=== PATIENT | male | born 1960 | race Caucasian/White ===

== ENCOUNTER 2020-09-27 15:13 | Emergency (ER) | payer OTHER ==
[2020-09-27 15:47] LABS: BASOPHIL 0.1 % (0-2); EOSINOPHIL 0 % (0-5); HCT 36.9 % (42.0-52.0); HGB 13.1 g/dl (13.2-18.0); LYMPHOCYTE 6.7 % (15-48); MCH 32.3 pg (25.0-31.0); MCHC 35.5 g/dL (32.0-36.0); MCV 91.1 fL (78.0-100.0); MONOCYTE 6.7 % (0-12); MPV 12.7 fL (6.0-9.5); NEUTROPHIL 85.8 % (41-80); NRBC 0; RBC 4.05 M/uL (4.70-6.00); RDW 13.2 % (11.5-14.0); WBC 14.1 K/uL (4.0-10.5)
[2020-09-27 15:58] LABS: ALBUMIN 2.2 g/dL (3.4-5.0); BILIRUBIN - TOTAL 1.2 mg/dL (0.2-1.0); BUN/CREAT RATIO (CALC) 9.4 RATIO; CREATININE 0.53 mg/dL (0.67-1.17); GLOBULIN (CALCULATION) 5.8 g/dL; POTASSIUM 3.3 mmol/L (3.5-5.1)
[2020-09-27 16:02] LABS: LACTIC ACID 5.5 mmol/L (0.4-1.9)
[2020-09-27 16:04] LABS: PLT 53 K/uL (150-400)
[2020-09-27 17:14] LABS: BILIRUBIN 2+ mg/dL (NEGATIVE); BLOOD TRACE-INTACT Ery/uL (NEGATIVE); CLARITY CLEAR (CLEAR); COLOR YELLOW (YELLOW); GLUCOSE (U) NORMAL (NORMAL); LEUKOCYTES NEGATIVE Leu/uL (NEGATIVE); NITRITE NEGATIVE (NEGATIVE); PROTEIN 1+ mg/dL (NEGATIVE); SPECIFIC GRAVITY 1.015 (1.001-1.030)
[2020-09-27 17:15] LABS: BARBITURATES NEGATIVE (NEGATIVE); ECSTASY (MDMA) NEGATIVE (NEGATIVE); MARIJUANA (THC) NEGATIVE (NEGATIVE); METHADONE NEGATIVE (NEGATIVE); OPIATES NEGATIVE (NEGATIVE)
[2020-09-27 17:16] LABS: AMPHETAMINES NEGATIVE (NEGATIVE); OXYCODONE NEGATIVE (NEGATIVE)
[2020-09-27 17:33] LABS: AMORPHOUS URATES CRYSTALS MODERATE; BACTERIA TRACE; MUCOUS TRACE; SQUAMOUS EPITHELIAL CELLS RARE; URINARY RBC RARE
[2020-09-27 18:56] LABS: INFLUENZA A NAA NEGATIVE (NEGATIVE)
[2020-09-27 18:59] LABS: CORONAVIRUS 2019 SARS-COV-2 POSITIVE (NEGATIVE)
== END 2020-09-27 22:00 | disposition other institution (70) ==
LOC: FER 15:13
PROVIDERS: Emergency Medicine
DX: R56.9 Unspecified convulsions (principal); I62.03 Nontraumatic chronic subdural hemorrhage; K85.90 Acute pancreatitis without necrosis or infection, unspecified; U07.1 COVID-19; F17.210 Nicotine dependence, cigarettes, uncomplicated
CPT/HCPCS: 36415; 36600; 70450; 71045; 80053; 80305; 81001; 82150; 82803; 83605; 83690; 84145; 84484; 85025; 87040; 93005; G0480; J0696; J1953; J2060; J3370; J3411; J3475; J7030; J7050; Q9967; U0002

== ENCOUNTER 2021-12-10 20:11 | Inpatient (IN) | payer OTHER ==
[~2021-12-10] VITALS: Ht 172.7 cm; Wt 71.0 kg
[~2021-12-10 20:11] MED LIST: KEPPRA XR500 MG PO; PERCOCET 5-3251 EACH PO
[2021-12-10 21:52] LABS: BASOPHIL 0.3 % (0-2); EOSINOPHIL 0 % (0-5); HCT 35.4 % (42.0-52.0); HGB 12.1 g/dl (13.2-18.0); LYMPHOCYTE 6.1 % (15-48); MCH 31.5 pg (25.0-31.0); MCHC 34.2 g/dL (32.0-36.0); MCV 92.2 fL (78.0-100.0); MONOCYTE 13.2 % (0-12); MPV 9.6 fL (6.0-9.5); NRBC 0; PLT 374 K/uL (150-400); RBC 3.84 M/uL (4.70-6.00); RDW 12.9 % (11.5-14.0)
[2021-12-10 22:27] LABS: CORONAVIRUS 2019 SARS-COV-2 NEGATIVE (NEGATIVE); INFLUENZA A NAA NEGATIVE (NEGATIVE)
[2021-12-10 22:42] LABS: ALKALINE PHOSHATASE 111 U/L (46-116); ALT 14 U/L (16-63); AST 22 U/L (15-37); BILIRUBIN - TOTAL 0.4 mg/dL (0.2-1.0); BUN 8 mg/dL (7-18); CHLORIDE 85 mmol/L (98-107); CO2 (BICARBONATE) 30 mmol/L (21-32); CREATININE 0.73 mg/dL (0.67-1.17); GLOBULIN (CALCULATION) 5.7 g/dL; GLUCOSE 117 mg/dL (74-106); TOTAL PROTEIN 7.7 g/dL (6.4-8.2)
[2021-12-11 01:03] LABS: BILIRUBIN NEGATIVE (NEGATIVE); BLOOD NEGATIVE Ery/uL (NEGATIVE); CLARITY CLEAR (CLEAR); COLOR YELLOW (YELLOW); GLUCOSE (U) NORMAL (NORMAL); LEUKOCYTES NEGATIVE Leu/uL (NEGATIVE); NITRITE NEGATIVE (NEGATIVE); PROTEIN NEGATIVE (NEGATIVE); UROBILINOGEN 0.2 mg/dL (0.2-1.0)
[2021-12-11 05:36] LABS: BASOPHIL 0.2 % (0-2); EOSINOPHIL 0 % (0-5); HGB 10.9 g/dl (13.2-18.0); LYMPHOCYTE 4.7 % (15-48); MCH 31.9 pg (25.0-31.0); MCHC 34.1 g/dL (32.0-36.0); MCV 93.6 fL (78.0-100.0); MONOCYTE 10.5 % (0-12); MPV 9.5 fL (6.0-9.5); NEUTROPHIL 81.8 % (41-80); NRBC 0; PLT 344 K/uL (150-400); RBC 3.42 M/uL (4.70-6.00); RDW 13.1 % (11.5-14.0); RETICULOCYTE COUNT 0.9 % (1.0-2.0)
[2021-12-11 05:46] LABS: INR 1.51 (0.9-1.2); PROTHROMBIN TIME 17.5 SECONDS (11.8-13.4)
[2021-12-11 05:47] LABS: PTT 39.4 SECONDS (24.4-34.7)
[2021-12-11 05:59] LABS: WBC 32.7 K/uL (4.0-10.5)
[2021-12-11 06:22] LABS: TOTAL CELL COUNT 100
[2021-12-11 06:25] LABS: BLAST 1; LYMPHOCYTE(M) 1 % (15-48); MONOCYTE(M) 5 % (0-12); NEUTROPHILS(M) 93 % (41-80); PLATELET ESTIMATE NORMAL; PLATELET MORPHOLOGY SATTELLITISM
[2021-12-11 07:39] LABS: ALBUMIN 1.7 g/dL (3.4-5.0); BILIRUBIN - TOTAL 0.3 mg/dL (0.2-1.0); BUN/CREAT RATIO (CALC) 10.2 RATIO; C-REACTIVE PROTEIN 12.3 mg/dL (<=0.90); CREATININE 0.59 mg/dL (0.67-1.17); GLOBULIN (CALCULATION) 4.9 g/dL; MAGNESIUM 1.7 mg/dL (1.8-2.4); PHOSPHORUS 3.9 mg/dL (2.6-4.7); POTASSIUM 3.2 mmol/L (3.5-5.1); TOTAL PROTEIN 6.6 g/dL (6.4-8.2)
[2021-12-11 10:27] LABS: FT4 (FREE T4) 1.4 ng/dL (0.76-1.46)
--- NOTE | 2021-12-11 16:27 | NUR ---
CIWA SCORE 0 AT 1130.
--- NOTE | 2021-12-11 20:54 | NUR ---
SPOKE TO HAILE REGARDING PT'S HR, TEMP, & RR CAUSING HIS MEWS SCORE TO BE 5. CONFIRMED THAT BLOOD CULTURES WERE CLLECTED, ANTIBIOTICS ARE ORDERED, & FLUIDS ARE RUNNING. I ALSO GAVE TYLENOL FOR FEVER.
[2021-12-12 03:52] LABS: BASOPHIL 0.2 % (0-2); EOSINOPHIL 0 % (0-5); HCT 29.2 % (42.0-52.0); HGB 9.7 g/dl (13.2-18.0); LYMPHOCYTE 7.5 % (15-48); MCH 31.8 pg (25.0-31.0); MCHC 33.2 g/dL (32.0-36.0); MCV 95.7 fL (78.0-100.0); MONOCYTE 14.6 % (0-12); MPV 9.2 fL (6.0-9.5); NRBC 0; PLT 286 K/uL (150-400); RBC 3.05 M/uL (4.70-6.00); RDW 13.2 % (11.5-14.0); WBC 25.6 K/uL (4.0-10.5)
[2021-12-12 03:56] LABS: NEUTROPHIL 75.2 % (41-80)
[2021-12-12 04:10] LABS: ALBUMIN 2.4 g/dL (3.4-5.0); ALKALINE PHOSHATASE 87 U/L (46-116); ALT <6 U/L (16-63); AST 21 U/L (15-37); BILIRUBIN - TOTAL 0.5 mg/dL (0.2-1.0); BUN 5 mg/dL (7-18); BUN/CREAT RATIO (CALC) 7.7 RATIO; CHLORIDE 96 mmol/L (98-107); CO2 (BICARBONATE) 27 mmol/L (21-32); CREATININE 0.65 mg/dL (0.67-1.17); GLOBULIN (CALCULATION) 4.2 g/dL; GLUCOSE 99 mg/dL (74-106); LIPASE 354 U/L (73-393); MAGNESIUM 1.5 mg/dL (1.8-2.4); POTASSIUM 2.8 mmol/L (3.5-5.1); TOTAL PROTEIN 6.6 g/dL (6.4-8.2)
[2021-12-13 06:00] LABS: BASOPHIL 0.3 % (0-2); EOSINOPHIL 0.1 % (0-5); HGB 10.6 g/dl (13.2-18.0); LYMPHOCYTE 7.1 % (15-48); MCHC 33.1 g/dL (32.0-36.0); MCV 96.7 fL (78.0-100.0); MONOCYTE 14.5 % (0-12); NEUTROPHIL 76.2 % (41-80); NRBC 0; PLT 306 K/uL (150-400); RBC 3.31 M/uL (4.70-6.00); RDW 13.3 % (11.5-14.0)
[2021-12-13 06:20] LABS: BUN/CREAT RATIO (CALC) 6.6 RATIO; CREATININE 0.61 mg/dL (0.67-1.17); MAGNESIUM 1.6 mg/dL (1.8-2.4); PHOSPHORUS 3.2 mg/dL (2.6-4.7); POTASSIUM 3.5 mmol/L (3.5-5.1)
--- NOTE | 2021-12-13 20:51 | NUR ---
REPORTED INCREASED TEMP AND HIGH MEWS SCORE TO MONAE FONTANEZ. MONAE FONTANEZ REPORTS THAT HE IS PUTTING IN NEW ORDERS AT THIS TIME FOR MORE BLOOD CULTURES TO BE DRAWN. NO OTHER ORDERS GIVEN AT THIS TIME. WILL CONTINUE TO MONITOR PATIENT.
[2021-12-13 21:20] LABS: HCT 30.4 % (42.0-52.0); HGB 10.1 g/dl (13.2-18.0); MCH 31.7 pg (25.0-31.0); MCHC 33.2 g/dL (32.0-36.0); MCV 95.3 fL (78.0-100.0); MPV 9.4 fL (6.0-9.5); RBC 3.19 M/uL (4.70-6.00); RDW 13.2 % (11.5-14.0)
[2021-12-13 21:22] LABS: WBC 32.9 K/uL (4.0-10.5)
[2021-12-14 06:10] LABS: BASOPHIL 0.2 % (0-2); EOSINOPHIL 0.2 % (0-5); HCT 30.9 % (42.0-52.0); HGB 10.1 g/dl (13.2-18.0); LYMPHOCYTE 6.7 % (15-48); MCH 31.9 pg (25.0-31.0); MCHC 32.7 g/dL (32.0-36.0); MCV 97.5 fL (78.0-100.0); NEUTROPHIL 80.3 % (41-80); NRBC 0; PLT 285 K/uL (150-400); RBC 3.17 M/uL (4.70-6.00); RDW 13.3 % (11.5-14.0)
[2021-12-14 06:15] LABS: WBC 32.2 K/uL (4.0-10.5)
[2021-12-14 07:23] LABS: ALBUMIN 1.7 g/dL (3.4-5.0); BILIRUBIN - TOTAL 0.4 mg/dL (0.2-1.0); BUN/CREAT RATIO (CALC) 11.9 RATIO; CREATININE 0.67 mg/dL (0.67-1.17); GLOBULIN (CALCULATION) 4.1 g/dL; MAGNESIUM 1.3 mg/dL (1.8-2.4); POTASSIUM 3.2 mmol/L (3.5-5.1); TOTAL PROTEIN 5.8 g/dL (6.4-8.2)
--- NOTE | 2021-12-14 15:38 | NUR ---
PT AMBULATED ON RA. 02 SAT REMAINED ABOVE 93% FOR GREATER THAN 6 MINUTES.
--- NOTE | 2021-12-14 15:48 | NUR ---
12/14/21 Mr. Escalera lives alone. He is independent in the home and community. He is no longer using 02 while hospitalized. - Mr. Escalera reports to be supported by odd and in jobs. He lives in a subsidized rent apartment. His foodstamps were discontinued, although he reports to have submitted the requested information. He uses the foodbanks. He was advised to go to the [facility] office for assistance in getting the foodstamps restarted. Mr. Escalera is unaware if he has a PCP. He was in aggreement for this social services specialist to contact his daughter. Chelo Escalera, daughter, [phone], reports the PCP to be at [facility]. The Prep Manager was requested to schedule an appointment - Mr. Escalera reports to drink 12 beers per day. He states that he believes he drinks in excess and would like to quit, He states he will quit on his own and was not interested in cessation programs.
[2021-12-14 15:58] LABS: BILIRUBIN NEGATIVE (NEGATIVE); BLOOD NEGATIVE Ery/uL (NEGATIVE); CLARITY CLEAR (CLEAR); COLOR YELLOW (YELLOW); GLUCOSE (U) NORMAL (NORMAL); LEUKOCYTES NEGATIVE Leu/uL (NEGATIVE); NITRITE NEGATIVE (NEGATIVE); PROTEIN TRACE (LOW) mg/dL (NEGATIVE); UROBILINOGEN 0.2 mg/dL (0.2-1.0)
[2021-12-14 16:04] LABS: MUCOUS TRACE
[2021-12-15 06:14] LABS: B. PERTUSSIS DNA NOT DETECTED (NOT DETECT); CORONAVIRUS 229E NOT DETECTED (NOT DETECT); CORONAVIRUS HKU1 NOT DETECTED (NOT DETECT); CORONAVIRUS NL63 NOT DETECTED (NOT DETECT); CORONAVIRUS OC43 NOT DETECTED (NOT DETECT); HUMAN METAPNEUMO NOT DETECTED (NOT DETECT); INFLUENZA A NOT DETECTED (NOT DETECT); INFLUENZA A 2009 H1N1 NOT DETECTED (NOT DETECT); INFLUENZA A H1 NOT DETECTED (NOT DETECT); INFLUENZA A H3 NOT DETECTED (NOT DETECT); INFLUENZA B NOT DETECTED (NOT DETECT); PARAINFLUENZA 1 NOT DETECTED (NOT DETECT); PARAINFLUENZA 2 NOT DETECTED (NOT DETECT); PARAINFLUENZA 3 NOT DETETED (NOT DETECT); PARAINFLUENZA 4 NOT DETECTED (NOT DETECT); RESPIRATORY SYNCYTIAL VIRUS NOT DETECTED (NOT DETECT)
[2021-12-15 06:15] LABS: CHLAMYDOPHILA PNEUMON DNA PCR NOT DETECTED (NOT DETECT); CORONAVIRUS 2019 PCR NOT DETECTED (NOT DETECTD); MYCOPLASMA PNEUMONIAE NOT DETECTED (NOT DETECT)
[2021-12-15 06:21] LABS: BASOPHIL 0.3 % (0-2); EOSINOPHIL 0.5 % (0-5); HCT 30.6 % (42.0-52.0); LYMPHOCYTE 17.8 % (15-48); MCH 31.6 pg (25.0-31.0); MCHC 32.7 g/dL (32.0-36.0); MCV 96.8 fL (78.0-100.0); MONOCYTE 3.4 % (0-12); MPV 10.4 fL (6.0-9.5); NEUTROPHIL 76.6 % (41-80); NRBC 0; PLT 306 K/uL (150-400); RBC 3.16 M/uL (4.70-6.00); RDW 13.3 % (11.5-14.0); RETICULOCYTE COUNT 0.5 % (1.0-2.0)
[2021-12-15 06:23] LABS: INR 1.32 (0.9-1.2); PROTHROMBIN TIME 15.7 SECONDS (11.8-13.4); PTT 39.7 SECONDS (24.4-34.7)
[2021-12-15 06:28] LABS: WBC 24.4 K/uL (4.0-10.5)
[2021-12-15 07:30] LABS: IRON % SATURATION 90.4 %SAT (20-50)
[2021-12-15 07:51] LABS: ALBUMIN 1.8 g/dL (3.4-5.0); BILIRUBIN - TOTAL 0.4 mg/dL (0.2-1.0); C-REACTIVE PROTEIN 10.1 mg/dL (<=0.90); CREATININE 0.57 mg/dL (0.67-1.17); GLOBULIN (CALCULATION) 4.4 g/dL; MAGNESIUM 1.5 mg/dL (1.8-2.4); PHOSPHORUS 3.3 mg/dL (2.6-4.7); POTASSIUM 3.1 mmol/L (3.5-5.1); TOTAL PROTEIN 6.2 g/dL (6.4-8.2)
[2021-12-16 03:14] LABS: BASOPHIL 0.3 % (0-2); EOSINOPHIL 0.6 % (0-5); HCT 30.2 % (42.0-52.0); HGB 10.1 g/dl (13.2-18.0); MCHC 33.4 g/dL (32.0-36.0); MCV 95.6 fL (78.0-100.0); MONOCYTE 9.1 % (0-12); NRBC 0; PLT 318 K/uL (150-400); RBC 3.16 M/uL (4.70-6.00); RDW 13.2 % (11.5-14.0); WBC 19.6 K/uL (4.0-10.5)
[2021-12-16 03:27] LABS: LYMPHOCYTE 16.7 % (15-48)
[2021-12-16 03:48] LABS: ALBUMIN 1.8 g/dL (3.4-5.0); BILIRUBIN - TOTAL 0.5 mg/dL (0.2-1.0); CREATININE 0.57 mg/dL (0.67-1.17); GLOBULIN (CALCULATION) 4.7 g/dL; MAGNESIUM 1.2 mg/dL (1.8-2.4); PHOSPHORUS 3.8 mg/dL (2.6-4.7); POTASSIUM 2.9 mmol/L (3.5-5.1); TOTAL PROTEIN 6.5 g/dL (6.4-8.2); VANCOMYCIN, TROUGH 7.4 ug/mL (10-20)
[2021-12-16] MEDS ORDERED: ZYVOX600 MG PO (14:05)
--- NOTE | 2021-12-16 16:25 | NUR ---
12/16/21 Pre-authorization is required. A pre-authorization is pending through [employer].
[2021-12-17 04:21] LABS: BASOPHIL 0.3 % (0-2); EOSINOPHIL 0.5 % (0-5); HCT 30.8 % (42.0-52.0); LYMPHOCYTE 20.1 % (15-48); MCH 31.3 pg (25.0-31.0); MCHC 32.5 g/dL (32.0-36.0); MCV 96.3 fL (78.0-100.0); MONOCYTE 10.1 % (0-12); NEUTROPHIL 67.5 % (41-80); NRBC 0; PLT 342 K/uL (150-400); RDW 13.2 % (11.5-14.0)
[2021-12-17 04:24] LABS: WBC 15.1 K/uL (4.0-10.5)
[2021-12-17 04:51] LABS: BUN/CREAT RATIO (CALC) 19.4 RATIO; C-REACTIVE PROTEIN 9.8 mg/dL (<=0.90); CREATININE 0.67 mg/dL (0.67-1.17); MAGNESIUM 1.7 mg/dL (1.8-2.4); POTASSIUM 3.1 mmol/L (3.5-5.1)
--- NOTE | 2021-12-17 10:03 | NUR ---
12/17/21 Lidia reports [employer] to have been approved.
--- NOTE | 2021-12-17 10:24 | NUR ---
12/17/21 Bucky, daughter, telephoned and reported that Mr. Valencia apartment has an infestation of bedbugs in his apartment, [employer]. Bucky was advided to call the Housing Authority. She was informed that this situation will not delay discharge.
--- NOTE | 2021-12-17 16:54 | NUR ---
PT DISCHARGED TO HOME WITH A DAUGHTER SLAVA, DISCHARGE INSTRUCTIONS EXPLAINED TO PATIENT AND DAUGHTER. DOCTORS APPT GIVEN AND SHE HAD ALREADY MADE AN APPT WITH ONCOLOGY AT [facility] TO FOLLOW UP WITH PET SCAN
== END 2021-12-17 16:30 | disposition home or self-care (01) | DRG 177 ==
LOC: FER 20:11 → FTCU 12-11 02:18
PROVIDERS: Internal Medicine; Nurse Practitioner; ADMIT Internal Medicine
DX: J15.212 Pneumonia due to Methicillin resistant Staphylococcus aureus (principal); K85.20 Alcohol induced acute pancreatitis without necrosis or infection; K86.3 Pseudocyst of pancreas; E87.1 Hypo-osmolality and hyponatremia; J44.0 Chronic obstructive pulmonary disease with (acute) lower respiratory infection; J44.1 Chronic obstructive pulmonary disease with (acute) exacerbation; R65.10 Systemic inflammatory response syndrome (SIRS) of non-infectious origin without acute organ dysfunction; F10.239 Alcohol dependence with withdrawal, unspecified; Z20.822 Contact with and (suspected) exposure to COVID-19; E87.6 Hypokalemia; R91.1 Solitary pulmonary nodule; R60.0 Localized edema; G40.909 Epilepsy, unspecified, not intractable, without status epilepticus; E83.42 Hypomagnesemia; F17.210 Nicotine dependence, cigarettes, uncomplicated; E03.9 Hypothyroidism, unspecified; Z82.49 Family history of ischemic heart disease and other diseases of the circulatory system; Z80.59 Family history of malignant neoplasm of other urinary tract organ; Z28.310 Unvaccinated for COVID-19; Z79.899 Other long term (current) drug therapy
CPT/HCPCS: 36415; 70450; 71045; 71046; 71250; 80048; 80053; 80202; 81001; 81003; 82150; 82607; 82728; 83540; 83550; 83605; 83615; 83690; 83735; 83880; 84100; 84145; 84439; 84443; 84484; 85025; 85610; 85730; 86140; 87040; 87070; 87205; 93005; 93970; 94010; 94640; 94664; 94760; 94762; 97161; 97165; C9113; G0480; J1650; J1885; J2543; J3370; J3411; J3475; J7030; J7050; P9047; U0002